=== PATIENT | male | born 2000 | race Caucasian/White ===

== ENCOUNTER 2023-01-11 13:19 | Emergency (ER) | payer BC ==
--- NOTE | 2023-01-11 14:14 | RAD REPORT ---
EXAM DESCRIPTION: CT - Stone Protocol - 01/11/2023 2:02 pm CLINICAL HISTORY: Flank pain. FLANK PAIN COMPARISON: No comparisons TECHNIQUE: Axial images were obtained without oral or IV contrast. Lack of contrast limits solid org an and vascular assessment. The [id number] spans the entirety of the system partially obscuring uppermost abdomen and lung bases. Coronal reformatted images were obtained and reviewed. All CT scans are performed using dose optimization technique as appropriate and may include automated exposure control or mA/KV adjustment according to patient size. FINDINGS: The lower lung landis are clear. Imaged portions of the liver and spleen show no suspicious findings on non-contrast imaging. The panc reas and adrenal glands are normal. No pathologic lymphadenopathy in the abdomen or pelvis. 8 mm calculus is present distal right ureter with adjacent small 2 mm calculus also present. This res ults in moderate right hydronephrosis and hydroureter. No left-sided hydronephrosis or hydroureter se en. No left-sided stone visible. No bowel obstruction, free air, free fluid or abscess. Normal appendix noted. No significant bony abnormality. IMPRESSION: 8 mm calculus distal right ureter resulting in moderate right hydronephrosis and hydrour eter. There is a 2 mm stone superior to the 8 mm stone also present.
[2023-01-11 14:17] LABS: Specific Gravity 1.019 (1.005-1.030); Urine Bacteria None Seen /HPF (<20); Urine Bilirubin NEGATIVE (Negative); Urine Blood 3+ (OVER) (Negative); Urine Clarity Extremely Turbid (Clear); Urine Color Light-Orange (Yellow); Urine Glucose NEGATIVE (Negative); Urine Mucus Slight /HPF (None Seen); Urine Protein 1+ (Negative); Urine RBC >50 /HPF (None Seen); Urine Urobilinogen Normal (Normal)
[2023-01-11] MEDS ORDERED: NA CHLORIDE 0.9% 1,000 ML ONE (15:24)
[2023-01-11] MEDS ORDERED: MORPHINE 4 MG/ML SYR ONE (15:24)
[2023-01-11] MEDS ORDERED: ONDANSETRON 4 MG/2 ML VIAL ONE (15:24)
[2023-01-11 15:28] LABS: Absolute Lymphocytes (CBC) 2.1 K/uL (0.7-4.9); Hematocrit 41.6 % (39.6-49.0); Lymphocytes % 14.5 % (15.3-44.8); MCV 91.9 fL (80-100); Platelets 272 thou/uL (152-406); RBC Red Blood Cell Count 4.52 M/uL (4.33-5.43)
[2023-01-11 15:42] LABS: Bilirubin Total 1.6 mg/dL (0.2-1.0); Potassium 3.5 mEq/L (3.5-5.1); Protein, Total 7.4 g/dL (6.4-8.2)
[2023-01-11] MEDS ORDERED: KETOROLAC 30 MG/ML INJ ONE (16:54)
[2023-01-11] MEDS ORDERED: MAGNESIUM SULFATE 1 gm IVPB 1 GM/100 ML BAG IV ONE (16:54)
--- NOTE | 2023-01-11 17:06 | EDPHYS ---
Physician Documentation [facility] Name: Patrick Grajeda Age: 22 yrs Sex: Male : 2000 Arrival Date: 01/11/2023 Time: 13:19 Bed 19 Private MD: ED Physician Jordi Trinh HPI: 01/11 13:47 This 22 yrs old Male presents to ER via Ambulatory with complaints of Back Pain, jh7 Urinary Problem. 13:47 The patient presents with pain that is acute, with no known mechanism of injury. The jh7 symptoms are located in the right low back. Onset: The symptoms/episode began/occurred 2.5 hour(s) ago. The pain does not radiate. Associated signs and symptoms: The patient has no apparent associated signs or symptoms. The problem was sustained from unknown cause. Historical: - Allergies: 13:50 No Known Allergies; nj1 - PMHx: 13:50 None; nj1 - PSHx: 13:50 None; nj1 - Immunization history:: Client reports having NOT received the Covid vaccine. - Social history:: Smoking status: Patient denies any tobacco usage or history of. ROS: 13:47 Constitutional: Negative for fever, chills, and weight loss, Eyes: Negative for injury, jh7 pain, redness, and discharge, Neck: Negative for injury, pain, and swelling, Cardiovascular: Negative for chest pain, palpitations, and edema, Respiratory: Negative for shortness of breath, cough, wheezing, and pleuritic chest pain, Abdomen/GI: Negative for abdominal pain, nausea, vomiting, diarrhea, and constipation, MS/Extremity: Negative for injury and deformity, Skin: Negative for injury, rash, and discoloration, Neuro: Negative for headache, weakness, numbness, tingling, and seizure, 13:47 : Positive for flank pain, Negative for urinary symptoms, 13:47 All other systems are negative, Exam: 13:47 Constitutional: This is a well developed, well nourished patient who is awake, alert, jh7 and in no acute distress. Head/Face: Normocephalic, atraumatic. Cardiovascular: Regular rate and rhythm with a normal S1 and S2. No gallops, murmurs, or rubs. Normal PMI, no JVD. No pulse deficits. Respiratory: Lungs have equal breath sounds bilaterally, clear to auscultation and percussion. No rales, rhonchi or wheezes noted. No increased work of breathing, no retractions or nasal flaring. Abdomen/GI: Soft, non-tender, with normal bowel sounds. No distension or tympany. No guarding or rebound. No evidence of tenderness throughout. Skin: Warm, dry with normal turgor. Normal color with no rashes, no lesions, and no evidence of cellulitis. MS/ Extremity: Pulses equal, no cyanosis. Neurovascular intact. Full, normal range of motion. Neuro: Awake and alert, GCS 15, oriented to person, place, time, and situation. Motor strength 5/5 in all extremities. Sensory grossly intact. Normal gait. 13:47 : CVA tenderness, on the right, Vital Signs: 13:47 BP 137 / 87; Pulse 75; Resp 17; Temp 97.6(O); Pulse Ox 100% ; Weight 58.97 kg; Height 5 nj1 ft. 7 in. ; Pain 7/10; 15:06 BP 136 / 94; Pulse 53; Resp 16; Pulse Ox 100% on R/A; db 16:00 BP 128 / 97; Pulse 66; Resp 18; Pulse Ox 100% on R/A; db 17:30 BP 121 / 64; Pulse 76; Resp 18; Pulse Ox 100% on R/A; db 13:47 Body Mass Index 20.36 (58.97 kg, 170.18 cm) nj1 13:47 Pain Scale: Adult nj1 MDM: 13:25 Patient medically screened. [facility] 17:24 Differential diagnosis: Pyelonephritis Ureterolithiasis. Data reviewed: vital signs, [facility] nurses notes, lab test result(s), radiologic studies, CT scan. I considered the following discharge prescriptions or medication management in the emergency department Medications were administered in the Emergency Department. See MAR. Counseling: I had a detailed discussion with the patient and/or guardian regarding the historical points, exam findings, and any diagnostic results supporting the discharge/admit diagnosis, the need for outpatient follow up, a urologist, to return to the emergency department if symptoms worsen or persist or if there are any questions or concerns that arise at home. Response to treatment: the patient's symptoms have markedly improved after treatment. Special discussion: Based on the history and exam findings, there is no indication for further emergent testing or inpatient evaluation. I discussed with the patient/guardian the need to see the urologist for further evaluation of the symptoms. 01/11 13:48 Order name: CBC with Diff; Complete Time: 15:49 [facility] 01/11 13:48 Order name: CMP; Complete Time: 15:49 [facility] 01/11 13:48 Order name: Lipase; Complete Time: 15:49 [facility] 01/11 13:48 Order name: Urinalysis w/ reflexes; Complete Time: 14:20 [facility] 01/11 13:48 Order name: CT Stone Protocol; Complete Time: 14:16 [facility] 01/11 13:48 Order name: IV Saline Lock; Complete Time: 15:01 [facility] 01/11 13:48 Order name: Labs collected and sent; Complete Time: 15:01 [facility] Administered Medications: 15:10 Drug: NS 0.9% IV 1000 ml IV at 1 bolus Per protocol; 1000 mL bolus Route: IV; Rate: 1 db bolus; Site: right antecubital; 16:00 Follow up: Response: No adverse reaction; IV Status: Completed infusion; IV Intake: db 1000ml 15:15 Drug: Ondansetron IVP 4 mg IVP once; over 2 minutes Route: IVP; Site: right antecubital;db 16:20 Follow up: Response: No adverse reaction db 15:15 Drug: morphine IVP or IV 4 mg IVP once over 4 mins Route: IVP; Infused Over: 4 mins; db Site: right antecubital; 16:20 Follow up: Response: No adverse reaction db 16:40 Drug: Ketorolac IVP 30 mg IVP once Route: IVP; Site: right antecubital; db 17:50 Follow up: Response: No adverse reaction db 16:40 Drug: Magnesium Sulfate IVPB 1 grams IVPB once over 1 hrs Route: IVPB; Infused Over: 1 db hrs; Site: right antecubital; 17:50 Follow up: Response: No adverse reaction; IV Status: Completed infusion; IV Intake: db 100ml 17:50 Follow up: IV Status: Completed infusion db Disposition Summary: 01/11/23 17:06 Discharge Ordered Notes: Location: Home [facility] Problem: new [facility] Symptoms: have improved [facility] Condition: Stable [facility] Diagnosis - Hydronephrosis with renal and ureteral calculous obstruction [facility] Followup: [facility] - With: Amari Chu MD - When: 2 - 3 days - Reason: Recheck today's complaints Discharge Instructions: - Discharge Summary Sheet [facility] - Kidney Stones [facility] - Hydronephrosis [facility] - Dietary Guidelines to Help Prevent Kidney Stones [facility] - Laser Therapy for Kidney Stones [facility] Forms: - Medication Reconciliation Form [facility] - Thank You Letter [facility] - Antibiotic Education [facility] - Prescription Opioid Use [facility] - Patient Portal Instructions [facility] - Leadership Thank You Letter [facility] Prescriptions: - Flomax 0.4 mg Oral capsule - take 1 capsule ORAL route every 24 hours; 7 capsule; Refills: 0, Product [facility] Selection Permitted - acetaminophen-codeine 300-15 mg Oral tablet - take 1 tablet ORAL route every 6 hours As needed as needed for pain; 20 tablet; jh7 Refills: 0, Product Selection Permitted - ketorolac 10 mg Oral tablet - take 1 tablet ORAL route every 6 hours for 3 days while awake; do not exceed 4 jh7 doses per day; 12 tablet; Refills: 0, Product Selection Permitted - Cipro 500 mg Oral Tablet - take 1 tablet ORAL route every 12 hours for 10 days; 20 tablet; Refills: 0, jh7 Product Selection Permitted Signatures: Dispatcher [employer] Nadia Villalobos, EGG SEPARATOR EGG SEPARATOR [facility] Amy Hill, RN RN db Latonya Cardona RN RN nj1
--- NOTE | 2023-01-11 17:06 | ER ---
Nurse's Notes [facility] Name: Patrick Grajeda Age: 22 yrs Sex: Male : 2000 Arrival Date: 01/11/2023 Time: 13:19 Bed 19 Private MD: Diagnosis: Hydronephrosis with renal and ureteral calculous obstruction Presentation: 01/11 13:47 Chief complaint: Patient states: Mid back, right sided pain "my kidney hurts" for about nj1 2.5 hours ago. Urinating a lot in quantity and it "was very yellow with a couple drops of blood at the end" when the pain started. Coronavirus screen: Vaccine status: Patient reports being unvaccinated. Ebola Screen: Patient denies travel to an Ebola-affected area in the 21 days before illness onset. Initial Sepsis Screen: Does the patient meet any 2 criteria? No. Patient's initial sepsis screen is negative. Does the patient have a suspected source of infection? No. Patient's initial sepsis screen is negative. Risk Assessment: Do you want to hurt yourself or someone else? Patient reports no desire to harm self or others. Onset of symptoms was January 11, 2023 at 11:15. 13:47 Method Of Arrival: Ambulatory [facility] 13:47 Acuity: ALANA 3 nj1 Historical: - Allergies: 13:50 No Known Allergies; nj1 - PMHx: 13:50 None; nj1 - PSHx: 13:50 None; nj1 - Immunization history:: Client reports having NOT received the Covid vaccine. - Social history:: Smoking status: Patient denies any tobacco usage or history of. Screenin:[address] [facility] ED Fall Risk Assessment (Adult) History of falling in the last 3 months, db including since admission No falls in past 3 months (0 pts) Confusion or Disorientation No (0 pts) Intoxicated or Sedated No (0 pts) Impaired Gait No (0 pts) Mobility Assist Device Used No (0 pt) Altered Elimination No (0 pt) Score/Fall Risk Level 0 - 2 = Low Risk Oriented to surroundings, Maintained a safe environment. Abuse screen: Denies threats or abuse. Denies injuries from another. Nutritional screening: No deficits noted. Tuberculosis screening: No symptoms or risk factors identified. Assessment: 15:00 Reassessment: Patient appears in no apparent distress at this time. Patient and/or db family updated on plan of care and expected duration. Pain level reassessed. Patient is alert, oriented x 3, equal unlabored respirations, skin warm/dry/pink. RIGHT FLANK PAIN WORSE TODAY. General: Appears in no apparent distress. comfortable, Behavior is calm, cooperative. Pain: Complains of pain in back and right low back. Neuro: Level of Consciousness is awake, alert, obeys commands, Oriented to person, place, time, situation. Cardiovascular: No deficits noted. Respiratory: No deficits noted. Airway is patent Respiratory effort is even, unlabored, Respiratory pattern is regular, symmetrical. GI: Abdomen is flat, non-distended, Abd is soft and non tender X 4 quads. 16:20 Reassessment: PT AMBULATORY TO RESTROOM. db 17:30 Reassessment: Patient appears in no apparent distress at this time. Patient and/or db family updated on plan of care and expected duration. Pain level reassessed. Patient is alert, oriented x 3, equal unlabored respirations, skin warm/dry/pink. Patient denies pain at this time. Patient states feeling better. Patient states symptoms have improved. Vital Signs: 13:47 BP 137 / 87; Pulse 75; Resp 17; Temp 97.6(O); Pulse Ox 100% ; Weight 58.97 kg; Height 5 nj1 ft. 7 in. ; Pain 7/10; 15:06 BP 136 / 94; Pulse 53; Resp 16; Pulse Ox 100% on R/A; db 16:00 BP 128 / 97; Pulse 66; Resp 18; Pulse Ox 100% on R/A; db 17:30 BP 121 / 64; Pulse 76; Resp 18; Pulse Ox 100% on R/A; db 13:47 Body Mass Index 20.36 (58.97 kg, 170.18 cm) nj1 13:47 Pain Scale: Adult nj1 ED Course: 13:23 Patient arrived in ED. mr 13:25 [facility] jh7 13:25 Jordi Trinh MD is Attending Physician. jh7 13:50 Triage completed. nj1 13:50 Arm band placed on right wrist. nj1 14:04 CT Stone Protocol In Process Unspecified. EDMS 14:04 Urine collected: clean catch specimen, clear. tm3 14:53 Amy Hill, RN is Primary Nurse. db 14:59 Inserted saline lock: 20 gauge in right antecubital area, using aseptic technique. db Blood collected. 15:25 Patient has correct armband on for positive identification. Bed in low position. Call db light in reach. Side rails up X 1. Pulse ox on. NIBP on. 16:21 No provider procedures requiring assistance completed. db 17:05 Amari Chu MD is Referral Physician. [facility] er 18:10 Provided Education on: DISCHARGE. db 18:10 IV discontinued, intact, bleeding controlled, No redness/swelling at site. db Administered Medications: 15:10 Drug: NS 0.9% IV 1000 ml IV at 1 bolus Per protocol; 1000 mL bolus Route: IV; Rate: 1 db bolus; Site: right antecubital; 16:00 Follow up: Response: No adverse reaction; IV Status: Completed infusion; IV Intake: db 1000ml 15:15 Drug: Ondansetron IVP 4 mg IVP once; over 2 minutes Route: IVP; Site: right antecubital;db 16:20 Follow up: Response: No adverse reaction db 15:15 Drug: morphine IVP or IV 4 mg IVP once over 4 mins Route: IVP; Infused Over: 4 mins; db Site: right antecubital; 16:20 Follow up: Response: No adverse reaction db 16:40 Drug: Ketorolac IVP 30 mg IVP once Route: IVP; Site: right antecubital; db 17:50 Follow up: Response: No adverse reaction db 16:40 Drug: Magnesium Sulfate IVPB 1 grams IVPB once over 1 hrs Route: IVPB; Infused Over: 1 db hrs; Site: right antecubital; 17:50 Follow up: Response: No adverse reaction; IV Status: Completed infusion; IV Intake: db 100ml 17:50 Follow up: IV Status: Completed infusion db Medication: 16:21 VIS not applicable for this client. db Intake: 16:00 IV: 1000ml; Total: 1000ml. db 17:50 IV: 100ml; Total: 1100ml. db Outcome: 17:06 Discharge ordered by . 7 18:10 Discharged to home ambulatory, db 18:10 Condition: stable 18:10 Discharge instructions given to patient, Instructed on discharge instructions, follow up and referral plans. Prescriptions given X 4, 18:11 Patient left the ED. db Signatures: Dispatcher [employer] EDMS Hakeem Lopez tm3 Patel, Teresa, Reg Reg mr Nadia Jorge, EMBEDDED DEVELOPER EMBEDDED DEVELOPER jh7 Amy Hill, RN RN db Latonya Cardona RN RN nj1
[2023-01-11 18:29] VITALS: TEMP 97.6; O2SAT 100
[2023-01-11 18:37] VITALS: BP 121/64
== END 2023-01-11 18:11 | disposition home or self-care (01) ==
LOC: ER 13:19
DX: N13.2 Hydronephrosis with renal and ureteral calculous obstruction (principal); Z28.310 Unvaccinated for COVID-19
CPT/HCPCS: 96365; 96361; 85025; 81001; 36415; 83690; 80053; 76377; 74176; 96375; 99284; J3475; J2405; J7030